=== PATIENT | male | born 1995 | race Hispanic/Latino ===

== ENCOUNTER 2017-07-13 09:43 | Emergency (ER) | payer OTHER ==
[~2017-07-13] VITALS: Ht 165.1 cm; Wt 57.7 kg
[2017-07-13] MEDS ORDERED: NS 1,000 ML IV ONE (10:00)
[2017-07-13] MEDS ORDERED: MORPHINE 2 MG/ML 1ML SYRINGE IV PRN (10:00)
[2017-07-13] MEDS ORDERED: ONDANSETRON 4MG/2ML VIAL (J2405) IV ONE (10:00)
--- NOTE | 2017-07-13 10:39 | REP ---
Clinical: Trauma. Technique: AP and frog lateral views of the left hip. Findings: No acute fracture dislocation. Skeletal structures, joint spaces, and surrounding soft tissues appear normal. Impression: No acute fracture or dislocation. Signed by Enoch Dominguez MD 07/13/2017 10:30 A
--- NOTE | 2017-07-13 10:41 | REP ---
Clinical: Trauma. Fall. Technique: AP, lateral, and oblique views of the left knee (internal oblique and sunrise view omitted due to the patient's pain). Findings: No acute fracture dislocation. Skeletal structures, joint spaces, and surrounding soft tissues are normal. No effusion. Impression: No acute fracture or dislocation. Signed by Enoch Dominguez MD 07/13/2017 10:32 A
--- NOTE | 2017-07-13 10:42 | REP ---
Clinical: Trauma. Technique: AP and frog lateral views of the left femur. Findings: In conjunction with the left hip series, the femur is intact and there is no evidence for acute fracture dislocation. Surrounding soft tissues are unremarkable. No subcutaneous emphysema or radiodense foreign body. Impression: No acute fracture or dislocation. Signed by Enoch Dominguez MD 07/13/2017 10:33 A
--- NOTE | 2017-07-13 10:42 | REP ---
Clinical: Trauma. Technique: AP view of the pelvis. Findings: No acute fracture or dislocation. Hip joints are symmetric. Surrounding soft tissues are unremarkable. Impression: No acute fracture or dislocation. Signed by Enoch Dominguez MD 07/13/2017 10:33 A
[2017-07-13] MEDS ORDERED: IBUP-1022 PO (11:25)
[2017-07-13] MEDS ORDERED: NORC1TAB4 PO (11:26)
[2017-07-13] MEDS: PERCOCET 5MG/325MG TAB PO ONE ×2 (11:45→12:00)
[2017-07-13 12:05] VITALS: BP 125/78
== END 2017-07-13 12:05 | disposition home or self-care (01) ==
LOC: EDBD 09:43 → M ED 09:43
DX: M25.552 Pain in left hip (principal); M25.562 Pain in left knee; M79.605 Pain in left leg; W19.XXXA Unspecified fall, initial encounter; Y92.89 Other specified places as the place of occurrence of the external cause; Y93.9 Activity, unspecified; Y99.9 Unspecified external cause status
CPT/HCPCS: 72170; 73502; 73552; 73564; 96374; 96375; 99284; J2405